=== PATIENT | male | born 1970 | race Hispanic/Latino ===

== ENCOUNTER 2018-02-18 14:02 | Emergency (ER) | payer BC | END 2018-02-18 14:55 | disposition home or self-care (01) | LOC: ERS 14:02 | DX: K64.4 Residual hemorrhoidal skin tags (principal); I10 Essential (primary) hypertension | CPT/HCPCS: 99282 ==

== ENCOUNTER 2018-04-19 16:00 | Outpatient (CLI) | payer BC ==
[2018-04-19 16:33] LABS: #Basophils 0.1 thou/uL (0.0-0.2); #Eosinphils 0.1 thou/uL (0.0-0.7); #Lymphocytes 2.8 thou/uL (1.20-3.40); #Monocytes 0.4 thou/uL (0.11-0.59); #Neutrophils 4.4 thou/uL (1.40-6.50); %Basophils 1.5 % (0.0-1.0); %Eosinophils 1.9 % (0.0-10.0); %Lymphocytes 35.3 % (21.0-51.0); %Monocytes 5.2 % (0.0-10.0); %Neutrophils 56.1 % (42.0-75.0); Hemoglobin 15.2 g/dL (14.0-18.0); Mean Corpuscular HGB CONC 35.3 g/dL (32.0-36.0); Mean Corpuscular Hemoglobin 32.4 pg (27.0-31.0); Mean Platelet Volume 7.3 fL (7.4-10.4); Platelet Count 241 thou/uL (130-400); RBC Distribution Width 11.6 % (11.5-14.5); White Blood Cell (WBC) Count 7.9 thou/uL (4.8-10.8)
--- NOTE | 2018-04-22 13:32 | EKG ---
Test Reason : Blood Pressure : / mmHG Vent. Rate : 074 BPM Atrial Rate : 074 BPM P-R Int : 166 ms QRS Dur : 102 ms QT Int : 360 ms P-R-T Axes : 035 069 -06 degrees QTc Int : 399 ms Normal sinus rhythm Abnormal QRS-T angle, consider primary T wave abnormality Abnormal ECG No previous ECGs available Confirmed by DR. Jeovany MOSQUERA MD ([id number]) on 04/22/2018 1:32:19 PM Referred By: JOSE Confirmed By:DR. Jeovany MOSQUERA MD
== END 2018-04-19 16:01 | disposition home or self-care (01) ==
LOC: LABBT 16:00
PROVIDERS: ATTEND Surgery
DX: Z01.812 Encounter for preprocedural laboratory examination (principal); K60.1 Chronic anal fissure; K64.4 Residual hemorrhoidal skin tags
CPT/HCPCS: 85025; 93005; 93010

== ENCOUNTER 2018-04-22 09:19 | Day surgery (SDC) | payer BC ==
[2018-04-19 16:00] VITALS: BMI 33.1
[2018-04-22] MEDS ORDERED: Lidocaine 2% 10 ML INJ ONE (09:41)
[2018-04-22] MEDS ORDERED: Bupivacaine HCl 0.5%/Epinephrine 1:200,000/PF 30 ml Vial ONE (09:41)
[2018-04-22] MEDS ORDERED: Bacitracin Zinc Ointment 30 gm TUBE ONE (09:41)
[2018-04-22] MEDS ORDERED: cefOXitin 2 GM VIAL ONE (09:48)
[2018-04-22] MEDS ORDERED: Sodium Chloride 0.9% 100 ML ONE (09:49)
[2018-04-22] MEDS ORDERED: Midazolam HCl 2 mg/2 ml Vial ONE (10:20)
[2018-04-22] MEDS ORDERED: Fentanyl 100 MCG/2 ML VIAL ONE (10:20)
--- NOTE | 2018-04-22 12:14 | OP ---
PREOPERATIVE DIAGNOSIS: Chronic anal fissure with sentinel pile. SURGEON: Jori Borrero M.D. PROCEDURE PERFORMED: Lateral internal sphincterotomy with excision of sentinel pile. INDICATIONS: This is a 47-year-old male, who has a 6-month history of anal pain with occasional brig ht red blood per rectum. FINDINGS: He had a deep chronic posterior anal fissure with a large sentinel pile. PROCEDURE IN DETAIL: After informed consent was obtained, the patient was taken to the operating rupal m and given general mask anesthesia. He was placed in lithotomy position. His perianal region was p repped and draped in usual fashion. Local anesthesia with 0.5% Marcaine was infiltrated as a four-qu adrant anal block. A bivalve anal retractor was inserted and anoscopy performed. He had a deep records manager gurpreet posterior anal fissure. He had a healed anterior anal fissure. His sphincter was under a lot of spasm. An incision was made in the intersphincteric groove. The anoderm and anal mucosa bluntly di ssected from the internal sphincter with Metzenbaum scissors. Then, the internal sphincter bluntly d issected from the external sphincter with the Metzenbaum scissors and sharply divided. Hemostasis ac hieved with direct pressure. The skin incision then closed with a 3-0 chromic suture. Then the sent inel pile was excised utilizing the LigaSure and sent to pathology for further analysis. Gelfoam imp regnated with bacitracin was placed within the anal canal and a sterile bandage applied. The patient tolerated the procedure well and was transferred to recovery in good condition. Sponge and needle c ount verified correct x2.
[2018-04-22] MEDS ORDERED: Ondansetron HCl/PF 4 MG/2 ML Vial ONE (15:05)
[2018-04-22] MEDS ORDERED: Ketorolac Tromethamine 30 MG/ML VIAL ONE (15:05)
[2018-04-22] MEDS ORDERED: Lidocaine 1% PF 5 ML VIAL ONE (15:05)
[2018-04-22] MEDS ORDERED: PROPOFOL 200 MG/20 ML VIAL ONE (15:05)
== END 2018-04-22 13:15 | disposition home or self-care (01) ==
LOC: SDC 09:19
PROVIDERS: ATTEND Surgery
PROC: 0DBQXZZ Excision of Anus, External Approach (ICD-10-PCS; principal; 2018-04-22)
PROC: 0D8R0ZZ Division of Anal Sphincter, Open Approach (ICD-10-PCS; principal; 2018-04-22)
DX: K60.2 Anal fissure, unspecified (principal); K64.4 Residual hemorrhoidal skin tags; I10 Essential (primary) hypertension; Z88.8 Allergy status to other drugs, medicaments and biological substances; Z79.899 Other long term (current) drug therapy
CPT/HCPCS: 88304; J0670; J0694; J1885; J2001; J2250; J2405; J2704; J3010; J7050; Q9968

== ENCOUNTER 2018-05-03 11:14 | Emergency (ER) | payer BC ==
[2018-05-03 13:06] LABS: #Basophils 0.1 thou/uL (0.0-0.2); #Eosinphils 0.2 thou/uL (0.0-0.7); #Lymphocytes 2.2 thou/uL (1.20-3.40); #Monocytes 0.5 thou/uL (0.11-0.59); #Neutrophils 4.6 thou/uL (1.40-6.50); %Basophils 1.4 % (0.0-1.0); %Eosinophils 2.3 % (0.0-10.0); %Lymphocytes 29.4 % (21.0-51.0); %Monocytes 6.2 % (0.0-10.0); %Neutrophils 60.7 % (42.0-75.0); Hemoglobin 13.5 g/dL (14.0-18.0); Mean Corpuscular Hemoglobin 32.7 pg (27.0-31.0); Mean Corpuscular Volume 93.4 fL (78.0-98.0); Mean Platelet Volume 7.5 fL (7.4-10.4); Platelet Count 194 thou/uL (130-400); RBC Distribution Width 11.8 % (11.5-14.5); Red Blood Cell (RBC) Count 4.13 mill/uL (4.70-6.10); White Blood Cell (WBC) Count 7.6 thou/uL (4.8-10.8)
== END 2018-05-03 15:40 | disposition home or self-care (01) ==
LOC: ERS 11:14
DX: K64.4 Residual hemorrhoidal skin tags (principal); I10 Essential (primary) hypertension
CPT/HCPCS: 36415; 85025; 99283

== ENCOUNTER 2024-05-12 12:02 | Inpatient (IN) | payer OTHER, SELFPAY ==
[2024-05-12 12:26] LABS: #Basophils 0.05 10x3/uL (0.0-0.2); %Basophils 0.6 % (0.0-1.0); %Lymphocytes 19.6 % (21.0-51.0); %Monocytes 5.4 % (0.0-10.0); %Neutrophils 64.2 % (42.0-75.0); Hematocrit 37.1 % (42.0-52.0); Mean Corpuscular HGB CONC 32.3 g/dL (32.0-36.0); Mean Corpuscular Hemoglobin 27.7 pg (27.0-31.0); Mean Corpuscular Volume 85.7 fL (78.0-98.0); Mean Platelet Volume 9.9 fL (7.4-10.4); Platelet Count 237 10x3/uL (130-400); RBC Distribution Width 14.6 % (11.5-14.5); Red Blood Cell (RBC) Count 4.33 mill/uL (4.70-6.10)
[2024-05-12 12:51] LABS: ALT (SGPT) 12 U/L (8-55); AST (SGOT) 16 U/L (5-34); Albumin 3.7 g/dL (3.5-5.0); Alkaline Phosphatase 80 U/L (40-110); Anion Gap 13 mmol/L (10-20); BUN (Urea Nitrogen) 17 mg/dL (8.4-25.7); Bilirubin, Total 0.6 mg/dL (0.2-1.2); Calc. Creatinine Clearance 0 mL/min (70-130); Calcium 9.3 mg/dL (7.8-10.44); Carbon Dioxide 25 mmol/L (22-29); Chloride 104 mmol/L (98-107); Estimated GFR 95; Globulin 3.7 g/dL (2.4-3.5); Glucose 127 mg/dL (70-105); Potassium 3.6 mmol/L (3.5-5.1); Protein, Total 7.4 g/dL (6.0-8.3); Sodium 138 mmol/L (136-145)
[2024-05-12 12:52] LABS: Troponin I 0.034 ng/mL (< 0.028)
[2024-05-12] MEDS ORDERED: Nitroglycerin 2% Ointment 1 INCH/1 GM Packet ONE ×2 (13:47→13:50)
[2024-05-12] MEDS ORDERED: Furosemide 40 MG (4 mL) VIAL ONE (13:47)
[2024-05-12] MEDS ORDERED: Aspirin Chewable 81 MG TAB ONE (13:48)
[2024-05-12] MEDS ORDERED: Ondansetron PF 4 MG/2 ML Vial IVP PRN (14:17)
[2024-05-12] MEDS ORDERED: traMADol HCl 50 MG TAB PO PRN (14:17)
[2024-05-12 15:23] VITALS: BMI 27.8
[2024-05-12] MEDS: Losartan 25 MG TAB PO SCH (15:24)
[2024-05-12] MEDS: Furosemide 40 MG (4 mL) VIAL SLOW IVP SCH (15:24)
[2024-05-12 16:05] LABS: Troponin I 0.043 ng/mL (< 0.028)
[2024-05-12 18:33] LABS: Acetaminophen Less than 10 mcg/mL (10.0-30.0); Alcohol Less than 10.0 mg/dL (Less than 10); Salicylate Less than 8.0 mg/dL (15.0-30.0)
[2024-05-12 19:13] LABS: SARS-CoV-2 E Target Negative; SARS-CoV-2 N2 Target Negative; SARS-CoV-2 NAA Rapid Test Not Detected (NotDetected); SARS-CoV-2 RdRP gene Negative
[2024-05-12 20:15] LABS: Troponin I 0.037 ng/mL (< 0.028)
[2024-05-12] MEDS: Famotidine 20 MG TAB PO SCH (22:25)
[2024-05-13] MEDS: hydrALAZINE 20 MG/ML VIAL SLOW IVP PRN (00:45)
[2024-05-13 05:08] LABS: #Basophils 0.06 10x3/uL (0.0-0.2); %Basophils 0.8 % (0.0-1.0); %Eosinophils 10.4 % (0.0-10.0); %Lymphocytes 25.8 % (21.0-51.0); %Monocytes 5.4 % (0.0-10.0); %Neutrophils 57.3 % (42.0-75.0); Hematocrit 34.5 % (42.0-52.0); Hemoglobin 11.4 g/dL (14.0-18.0); Mean Corpuscular Hemoglobin 27.6 pg (27.0-31.0); Mean Corpuscular Volume 83.5 fL (78.0-98.0); Mean Platelet Volume 10.8 fL (7.4-10.4); Platelet Count 271 10x3/uL (130-400); RBC Distribution Width 14.6 % (11.5-14.5); Red Blood Cell (RBC) Count 4.13 mill/uL (4.70-6.10)
[2024-05-13 05:20] LABS: Anion Gap 12 mmol/L (10-20); BUN (Urea Nitrogen) 19 mg/dL (8.4-25.7); Calc. Creatinine Clearance 107 mL/min (70-130); Carbon Dioxide 24 mmol/L (22-29); Cardiac Risk 4.1 (Less than 4.5); Chloride 109 mmol/L (98-107); Cholesterol 153 mg/dl (< 200 Desired); Estimated GFR 96; Glucose 155 mg/dL (70-105); HDL Cholesterol 37 mg/dL (>60 Neg Risk); LDL Cholesterol, Calculated 87 mg/dL; Magnesium 1.8 mg/dL (1.6-2.6); Potassium 3.4 mmol/L (3.5-5.1); Sodium 142 mmol/L (136-145); Triglycerides 143 mg/dL (Less than 150)
[2024-05-13] MEDS: Furosemide 40 MG (4 mL) VIAL SLOW IVP SCH (06:13)
[2024-05-13 08:51] LABS: Acetaminophen Less than 10 mcg/mL (10.0-30.0); Alcohol Less than 10.0 mg/dL (Less than 10); Salicylate Less than 8.0 mg/dL (15.0-30.0)
[2024-05-13] MEDS ORDERED: Carvedilol 3.125 MG TAB PO SCH ×2 (09:00→17:00)
[2024-05-13] MEDS ORDERED: Losartan 25 MG TAB PO SCH (09:00)
[2024-05-13] MEDS: Sacubitril 49 MG/Valsartan 51 MG TABLET PO SCH ×2 (09:16→21:00)
[2024-05-13] MEDS: Spironolactone 25 MG TAB PO SCH (09:16)
[2024-05-13] MEDS: Aspirin 81 mg Enteric Coated Tablet PO SCH (09:16)
[2024-05-13] MEDS: Carvedilol 6.25 MG TAB PO SCH ×2 (09:16→21:00)
[2024-05-13] MEDS: Potassium Chloride 20 MEQ TAB PO SCH ×2 (09:17→16:14)
[2024-05-13] MEDS: Enoxaparin 40 MG (0.4 mL) SYRINGE SC SCH (09:17)
[2024-05-13] MEDS: Magnesium 2 GM/50 ML(in water) 2 GM in Premix 1 BAG IVPB SCH (09:17)
[2024-05-13 16:55] LABS: Amphetamine Not Detected (NotDetected); Barbiturates Screen Not Detected (NotDetected); Benzodiazepine Screen Not Detected (NotDetected); Cocaine Metabolite Screen Not Detected (NotDetected); Methadone Not Detected (NotDetected); Methamphetamine Not Detected (NotDetected); Opiate Screen Not Detected (NotDetected); Oxycodone Screen Not Detected (NotDetected); Phencyclidine (PCP) Not Detected (NotDetected); THC/Cannabinoid Screen Not Detected (NotDetected); Tricyclic Screen Not Detected (NotDetected)
[2024-05-14 05:15] LABS: Anion Gap 11 mmol/L (10-20); BUN (Urea Nitrogen) 20 mg/dL (8.4-25.7); Calc. Creatinine Clearance 118 mL/min (70-130); Calcium 9.1 mg/dL (7.8-10.44); Carbon Dioxide 24 mmol/L (22-29); Chloride 109 mmol/L (98-107); Estimated GFR 105; Glucose 148 mg/dL (70-105); Magnesium 2.2 mg/dL (1.6-2.6); Potassium 3.7 mmol/L (3.5-5.1); Sodium 140 mmol/L (136-145)
[2024-05-14] MEDS: Sacubitril 49 MG/Valsartan 51 MG TABLET PO SCH (08:46)
[2024-05-14] MEDS: Magnesium Oxide 400 MG TAB PO SCH (08:47)
[2024-05-14] MEDS ORDERED: Furosemide 40 MG (4 mL) VIAL SLOW IVP SCH (09:00)
[2024-05-14 09:19] LABS: Hemoglobin A1c 6.5 % (4.0-6.0)
[2024-05-14 09:26] LABS: Troponin I 0.045 ng/mL (< 0.028)
[2024-05-14] MEDS: Torsemide 20 MG TAB PO SCH (11:33)
[2024-05-14 14:39] VITALS: BP 132/92; TEMP 97
== END 2024-05-14 16:08 | disposition home or self-care (01) | DRG 280 ==
LOC: ERS 12:02 → ERHOLD 13:54 → 2NO 15:12
PROVIDERS: ADMIT Family Medicine; ATTEND Hospitalist
DX: I11.0 Hypertensive heart disease with heart failure (principal); I50.43 Acute on chronic combined systolic (congestive) and diastolic (congestive) heart failure; I21.A1 Myocardial infarction type 2; E87.6 Hypokalemia; F15.10 Other stimulant abuse, uncomplicated; F10.90 Alcohol use, unspecified, uncomplicated; Z88.8 Allergy status to other drugs, medicaments and biological substances; Z79.899 Other long term (current) drug therapy; Z91.199 Patient's noncompliance with other medical treatment and regimen due to unspecified reason
CPT/HCPCS: 36415; 71045; 71046; 80048; 80053; 80061; 80306; 80307; 83036; 83735; 83880; 84443; 84484; 85025; 93005; 93306; 93798; 96374; J0360; J1650; J1940; J3475; U0002

== ENCOUNTER 2024-05-16 18:16 | Emergency (ER) | payer OTHER, SELFPAY ==
[2024-05-16 18:46] LABS: #Basophils 0.05 10x3/uL (0.0-0.2); %Basophils 0.6 % (0.0-1.0); %Eosinophils 8.8 % (0.0-10.0); %Lymphocytes 25.2 % (21.0-51.0); %Monocytes 8.6 % (0.0-10.0); %Neutrophils 56.6 % (42.0-75.0); Hematocrit 43.9 % (42.0-52.0); Hemoglobin 14.1 g/dL (14.0-18.0); Mean Corpuscular HGB CONC 32.1 g/dL (32.0-36.0); Mean Corpuscular Hemoglobin 27.2 pg (27.0-31.0); Mean Corpuscular Volume 84.6 fL (78.0-98.0); Mean Platelet Volume 10.3 fL (7.4-10.4); Platelet Count 330 10x3/uL (130-400); RBC Distribution Width 14.8 % (11.5-14.5); Red Blood Cell (RBC) Count 5.19 mill/uL (4.70-6.10)
[2024-05-16 19:01] LABS: ALT (SGPT) 16 U/L (8-55); AST (SGOT) 21 U/L (5-34); Acetaminophen Less than 10 mcg/mL (Less than 10); Albumin 4.2 g/dL (3.5-5.0); Alcohol Less than 10.0 mg/dL (Less than 10); Alkaline Phosphatase 85 U/L (40-110); Anion Gap 15 mmol/L (10-20); BUN (Urea Nitrogen) 38 mg/dL (8.4-25.7); Bilirubin, Total 0.5 mg/dL (0.2-1.2); Calc. Creatinine Clearance 0 mL/min (70-130); Calcium 9.8 mg/dL (7.8-10.44); Carbon Dioxide 27 mmol/L (22-29); Chloride 103 mmol/L (98-107); Estimated GFR 52; Glucose 109 mg/dL (70-105); Potassium 4.5 mmol/L (3.5-5.1); Protein, Total 8.2 g/dL (6.0-8.3); Salicylate Less than 8.0 mg/dL (Less than 8.0); Sodium 140 mmol/L (136-145)
[2024-05-16 19:05] LABS: Troponin I 0.033 ng/mL (< 0.028)
[2024-05-16 19:29] LABS: Bacteria/HPF None Seen HPF (None Seen); Bilirubin Negative (Negative); Blood, Urine Negative (Negative); CAUTI Indications for Culture Alt mental st,lethar; Clarity Clear (Clear); Glucose, Urine (Dipstick) Normal (Negative); Ketone, Urine Negative (Negative); Leukocyte Negative Leu/uL (Negative); Nitrite Negative (Negative); Protein, Urine (Dipstick) Negative (Neg-Trace); RBC/HPF None Seen HPF (0-3); Specific Gravity, Urine 1.014 (1.002-1.036); Squamous Epithelial None Seen HPF (0-3); Urobilinogen Normal mg/dL (Less than 2); WBC/HPF None Seen HPF (0-3); pH, Urine 5.5 (5.0-9.0)
[2024-05-16 19:38] LABS: Amphetamine Detected (NotDetected); Barbiturates Screen Not Detected (NotDetected); Benzodiazepine Screen Not Detected (NotDetected); Cocaine Metabolite Screen Not Detected (NotDetected); Methadone Not Detected (NotDetected); Methamphetamine Detected (NotDetected); Opiate Screen Not Detected (NotDetected); Oxycodone Screen Not Detected (NotDetected); Phencyclidine (PCP) Not Detected (NotDetected); THC/Cannabinoid Screen Not Detected (NotDetected); Tricyclic Screen Not Detected (NotDetected)
[2024-05-16 19:45] LABS: Urine Culture Reflex No No
== END 2024-05-16 20:45 | disposition home or self-care (01) ==
LOC: ERS 18:16
DX: F19.10 Other psychoactive substance abuse, uncomplicated (principal); N17.9 Acute kidney failure, unspecified; I50.9 Heart failure, unspecified; I11.0 Hypertensive heart disease with heart failure; Z55.6 Problems related to health literacy
CPT/HCPCS: 71045; 80053; 80306; 80307; 81001; 83880; 84484; 85025